=== PATIENT | female | born 1945 | race Caucasian/White ===

== ENCOUNTER 2018-06-25 18:54 | Emergency (ER) | payer MEDICARE ==
[~2018-06-25] VITALS: Ht 167.6 cm; Wt 60.0 kg
[2018-06-25] MEDS ORDERED: DOCU240C53 PO (19:15)
[2018-06-25] MEDS ORDERED: FURO-93 PO (19:15)
[2018-06-25] MEDS ORDERED: ATOR-2 PO (19:15)
[2018-06-25] MEDS ORDERED: POTA99TA24 PO (19:15)
[2018-06-25] MEDS ORDERED: LISI2.5T PO (19:15)
[2018-06-25] MEDS ORDERED: ONDANSETRON ODT 4 MG ONE (19:23)
[2018-06-25] MEDS ORDERED: HYDROmorphone 2 MG/ML, 1ML ONE (19:23)
[2018-06-25] MEDS ORDERED: PLEASE ENTER ALLERGIES MC SCH (19:30)
[2018-06-25] MEDS ORDERED: HYDROmorphone 1 MG/ML, 1ML IM ONE (19:30)
[2018-06-25] MEDS ORDERED: ONDANSETRON ODT 4 MG PO ONE (19:30)
[2018-06-25 21:45] VITALS: BP 151/82
== END 2018-06-25 21:48 | disposition home or self-care (01) ==
LOC: ED 21:07
DX: S42.224A 2-part nondisplaced fracture of surgical neck of right humerus, initial encounter for closed fracture (principal); E78.00 Pure hypercholesterolemia, unspecified; I25.2 Old myocardial infarction; I11.0 Hypertensive heart disease with heart failure; I50.9 Heart failure, unspecified; W07.XXXA Fall from chair, initial encounter; Y93.89 Activity, other specified; Y99.8 Other external cause status; Y92.89 Other specified places as the place of occurrence of the external cause
CPT/HCPCS: 73030; 73060; 93005; 96372; 99284; J1170; Q0162